=== PATIENT | female | born 1990 | race Two or more races ===

== ENCOUNTER → 2025-06-20 | Emergency (ER) | payer OTHER ==
[~2025-06-20] VITALS: Ht 175.3 cm; Wt 90.7 kg
[~2025-06-20] MED LIST: KETOROLAC TROMETHAMINE 30 MG VIAL IM ONE; KETOROLAC TROMETHAMINE 30 MG VIAL ONE; NORFLEX100MG PO; ORPHENADRINE CITRATE 30 MG/ML AMPUL IM ONE; ORPHENADRINE CITRATE 30 MG/ML AMPUL ONE; OxyCODONE HCL 5 MG TABLET (ROXICODONE) PO ONE; PERCOGESIC EXT1 EACH PO
== END | disposition left against medical advice (07) ==
LOC: ER 15:05
DX: M54.50 Low back pain, unspecified (principal); E03.9 Hypothyroidism, unspecified